=== PATIENT | male | born 1975 | race Two or more races ===

== ENCOUNTER 2019-11-07 18:40 | Emergency (ER) | payer SELFPAY ==
[~2019-11-07] VITALS: Ht 160 cm; Wt 82.0 kg
[2019-11-07] MEDS ORDERED: DIPH25CA83 PO (19:01)
[2019-11-07] MEDS ORDERED: IBUPROFEN 600MG TABLET PO STA (19:15)
[2019-11-07] MEDS ORDERED: VISCOUS LIDOCAINE 2% 15 ML UDC PO STA (19:15)
[2019-11-07] MEDS ORDERED: ONDANSETRON 4MG ODT PO ONE (19:15)
[2019-11-07] MEDS ORDERED: MAGNESIUM/ALUMINUM HYDROXIDE/SIMETHICONE 30ML UDC PO STA (19:15)
[2019-11-07] MEDS ORDERED: FAMOTIDINE 20MG TABLET PO ONE (19:15)
[2019-11-07 19:58] VITALS: BP 145/76
[2019-11-07 20:09] LABS: BASOPHILS % 0.2 % (0.0-2.0); EOSINOPHILS % 0.3 % (0.0-5.0); HEMATOCRIT. 43.4 % (42.0-52.0); HEMOGLOBIN. 14.2 g/dL (14.0-18.0); LYMPHOCYTES % 14.4 % (20.0-50.0); MEAN CORPUSCULAR VOLUME 82.9 fL (80.0-94.0); MEAN PLATELET VOLUME 8.4 fl (7.4-10.4); MONOCYTES % 6.4 % (2.0-8.0); NEUTROPHILS % 78.7 % (40.0-76.0); PLATELET 232 x1000/uL (130-400); RED BLOOD CELL COUNT 5.24 mill/uL (4.7-6.1); RED CELL DISTRIBUTION WIDTH 13.5 % (11.6-14.6)
[2019-11-07 20:16] LABS: CLARITY URINE TURBID (CLEAR); COLOR URINE DARK YELLOW (YELLOW); KETONES URINE NEGATIVE (NEGATIVE); LEUKOCYTE ESTERASE URINE TRACE (NEGATIVE); NITRITE URINE NEGATIVE (NEGATIVE); OCCULT BLOOD URINE NEGATIVE (NEGATIVE); PH URINE >=9.0 (4.5-8.0); PROTEIN URINE 1+ (NEGATIVE); SPECIFIC GRAVITY URINE 1.027 (1.005-1.030)
[2019-11-07 20:17] LABS: CHLORIDE 109 mEq/L (98-107)
== END 2019-11-07 22:07 | disposition home or self-care (01) ==
LOC: ER 18:40
DX: R10.13 Epigastric pain (principal); R11.2 Nausea with vomiting, unspecified; R79.89 Other specified abnormal findings of blood chemistry; Z98.890 Other specified postprocedural states
CPT/HCPCS: 36415; 76700; 80053; 81003; 83690; 85025; 99284; Q0162